=== PATIENT | female | born 1970 | race Caucasian/White ===

== ENCOUNTER 2022-09-12 11:45 | Outpatient (CLI) | payer OTHER ==
[~2022-09-12] VITALS: Ht 162.6 cm; Wt 59.0 kg
== END 2022-09-12 23:59 | disposition home or self-care (01) ==
LOC: MLB 11:45 → EDSTATUS 09-13 14:20
PROVIDERS: ATTEND Internal Medicine Gastroenterology
DX: Z01.812 Encounter for preprocedural laboratory examination (principal); Z20.822 Contact with and (suspected) exposure to COVID-19; Z12.11 Encounter for screening for malignant neoplasm of colon